=== PATIENT | female | born 1970 | race African-American/Black ===

== ENCOUNTER 2016-12-16 10:11 | Emergency (ER) | payer OTHER ==
--- NOTE | ~2016-12-16 | EKG ---
PATIENT: KHOA FLORES UNIT #: [id number] Ventricular Rate: 87 BPM Atrial Rate: 87 BPM P-R Interval: 156 ms QRS Duration: 86 ms Q-T Interval: 360 ms QTC Calculation(Bezet): 433 ms P [place]: 54 degrees Calculated R [place]: 2 degrees Calculated T [place]: 15 degrees Diagnosis Line: Normal sinus rhythm Diagnosis Line: Normal ECG Diagnosis Line: No previous ECGs available Diagnosis Line: Confirmed by CHANTE KIRBY MD ([id number]) on Diagnosis Line: 12/18/2016 8:44:28 AM INTERPRETING MD: MIRTA GIFFORD
--- NOTE | ~2016-12-16 | CT71 ---
[facility] A Service of [facility] RADIOLOGY TEXT RESULTS PATIENT: KHOA FLORES LOCATION: [facility] : 70 UNIT #: [id number] AGE: [address]: Regis Marquis MD SEX: F ORDER DR: [id number] [facility]. [place], [place] [address] [id number] E MR#: [id number] #: [id number] NAME: KHOA FLORES : 1970 SEX: F STUDY DATE/TIME: 12/16/2016 11:25 UNIT: [facility] ROOM: STUDY DESCRIPTION: CT Head Wo Contrast Attending Physician: Regis Marquis M.D. Ordering Physician: Regis Marquis M.D. Primary Care Physician: Kenyon Barrett M.D. MEDICAL IMAGING REPORT This report is preliminary unless electronic signature is present EXAM CT brain without contrast media. HISTORY History supplied is tingling left side of face began today. DATE OF STUDY: 12/16/2016 COMPARISON: 12/09/2016. The CT exam was performed with one or more of the following radiation dose reduction techniques: automatic exposure control, adjustment of mA and/or kV according to patient size, and iterative reconstruction. FINDINGS Ventricular size and configuration is normal. No intra or extraaxial mass lesions, fluid collections or mass effect are seen. No focal areas of low attenuation or evidence of acute intracranial hemorrhage. Sinuses and mastoid air cells are clear. CONCLUSION Normal Dictated by... Jose Carlos Hogan M.D. THIS IS AN ELECTRONICALLY VERIFIED REPORT Jose Carlos Hogan M.D. at 12/17/2016 5:06 PM TAZ/azeb TD: 12/16/2016 13:21 [facility] A Service [facility] RADIOLOGY TEXT RESULTS PATIENT: KHOA FLORES LOCATION: [facility] : 70 UNIT #: [id number] AGE: [address]: Regis Marquis MD SEX: F ORDER DR: KUN #: [id number] MEDICAL IMAGING REPORT Page 1 of 1 COPY
[2016-12-16 11:09] LABS: POC - CKMB <1.0 ng/mL (0.0-7.9); POC - TROPONIN <0.05 ng/mL (<=0.05)
[2016-12-16 11:10] LABS: BASOPHIL% 0.6 % (0-2.5); EOSINOPHIL# 0.1 X10e3 (0-0.7); HEMATOCRIT 40.4 % (35.0-45.0); HEMOGLOBIN 12.9 gm/dL (12.0-16.0); LYMPHOCYTE% 19.7 % (17.0-45.0); MEAN CELL VOLUME 84.8 FL (83-96); MEAN CORPUSCULAR HGB CONC 31.9 g/dL (30-36); MEAN PLATELET VOLUME 8.9 FL (6.5-11.5); MONOCYTE# 0.3 X10e3 (0-1.0); MONOCYTE% 6.2 % (3.0-12.0); NEUTROPHIL# 3.8 X10e3 (1.5-7.1); NEUTROPHIL% 72.5 % (40-75); PLATELET COUNT 214 X10e3 (140-420); RED BLOOD COUNT 4.76 X10e (3.90-5.30); RED CELL DISTRIBUTION WIDTH 14.5 % (11.0-15.5); WHITE BLOOD COUNT 5.2 X10e3 (4.0-10.5)
[2016-12-16 11:13] LABS: DIFF IND NO
[2016-12-16 11:31] LABS: BUN/CREATININE RATIO 15.71; CALCIUM SERUM 9.2 mg/dL (8.4-10.2); CREATININE SERUM 0.7 mg/dL (0.6-1.4); GLOM FILT RATE Estimated 120.4 mL/min (>60); POTASSIUM 3.7 mmol/L (3.5-5.1)
== END 2016-12-16 14:01 | disposition home or self-care (01) ==
LOC: CED 10:11
PROVIDERS: Emergency Medicine
DX: G43.909 Migraine, unspecified, not intractable, without status migrainosus (principal); R20.9 Unspecified disturbances of skin sensation; Z88.0 Allergy status to penicillin; Z88.2 Allergy status to sulfonamides
CPT/HCPCS: 36415; 70450; 80048; 82553; 84484; 85025; 93005; 99284